=== PATIENT | female | born 2000 | race Caucasian/White ===

== ENCOUNTER 2023-11-18 20:22 | Emergency (ER) | payer MEDICAID, SELFPAY ==
[2023-11-18 20:23] VITALS: BP 146/100; PULSE 93; RESP 15; TEMP 36.4; O2SAT 97
--- NOTE | 2023-11-18 22:22 | ED.GENADULT ---
HPI - General Adult General Chief complaint: Recheck/Abnormal Lab/Rx Stated complaint: test Time Seen by Provider: 11/18/23 22:16 Source: patient Mode of arrival: ambulatory Limitations: no limitations History of Present Illness HPI narrative: This is a 22-year-old female who is presenting after a referral from urgent care for a hCG quantitative test. reports that they saw a faint line on her test and were unable to tell if it was positive. Patient states that her last period was actually November 07, 2023 so this was surprising news for her. States that she has had some intermittent nausea and lower back cramps but those symptoms are completely resolved now. She is completely asymptomatic at this time. Denies fevers, chills, vaginal complaints, abdominal complaints, diarrhea. Review of Systems Review of Systems: All systems as dictated in HPI Exam Narrative: GENERAL: Well-appearing, well-nourished, and in no acute distress. HEAD: Normocephalic, atraumatic. MSK: Normal range of motion. No edema. SKIN: Warm, dry, no rash. NEURO: Alert and oriented x4. No focal deficits. PSYCH: Normal mood and affect. Course Vital Signs Vital signs: Vital Signs Temperature 97.6 F 11/18/23 20:23 Pulse Rate 93 11/18/23 20:23 Respiratory Rate 15 11/18/23 20:23 Blood Pressure 146/100 H 11/18/23 20:23 Pulse Oximetry 97 11/18/23 20:23 Oxygen Delivery Room Air 11/18/23 20:23 Temperature 97.6 F 11/18/23 20:23 Pulse Rate 67 11/18/23 22:36 Respiratory Rate 18 11/18/23 22:36 Blood Pressure 138/92 H 11/18/23 22:36 Pulse Oximetry 99 11/18/23 22:36 Oxygen Delivery Room Air 11/18/23 20:23 Medical Decision Making [facility] Narrative Medical decision making narrative: This is a 22-year-old female who presents to the ED for Beta hCG quantitative test after faintly positive hcg urine test at urgent care today. vitals are normal. Exam benign. She has no complaints. HCG quantitative is a 0.70 today. This does indicate is positive. discussed these results with the patient in that she should follow-up with her normal OB. This would be her 3rd . Discharged in stable condition Vital Signs Vital Signs: Vital Signs Temperature 97.6 F 11/18/23 20:23 Pulse Rate 93 11/18/23 20:23 Respiratory Rate 15 11/18/23 20:23 Blood Pressure 146/100 H 11/18/23 20:23 Pulse Oximetry 97 11/18/23 20:23 Oxygen Delivery Room Air 11/18/23 20:23 Temperature 97.6 F 11/18/23 20:23 Pulse Rate 67 11/18/23 22:36 Respiratory Rate 18 11/18/23 22:36 Blood Pressure 138/92 H 11/18/23 22:36 Pulse Oximetry 99 11/18/23 22:36 Oxygen Delivery Room Air 11/18/23 20:23 Lab Data Labs: Lab Results 11/18/23 Range/Units 20:31 Beta HCG, Quant 8.70 mIU/ML Discharge Plan Discharge Clinical Impression: Positive blood test Patient Disposition: Home, Self-Care Condition: Stable Instructions: Antibiotic Form Additional Instructions: your hCG quantitative is a 8.70 today. Please follow-up with OB for repeat hCG If you have any new or worsening symptoms please return to the ER for further evaluation. Follow-up/Referrals: PHYSICIAN,TRAVELING NURSE [Non-Staff] - Time of Disposition: :24
[2023-11-18 22:36] VITALS: BP 138/92; PULSE 67; RESP 18; O2SAT 99
== END 2023-11-18 22:37 | disposition home or self-care (01) ==
LOC: ANHED 22:33
PROVIDERS: Student in an Organized Health Care Education/Training Program; Emergency Provider Physician Assistant; PCP Emergency Medicine
DX: Z32.01 Encounter for pregnancy test, result positive (principal)
CPT/HCPCS: 36415; 84702; 99283